=== PATIENT | female | born 1940 | race Caucasian/White ===

== ENCOUNTER 2022-02-21 09:36 | Emergency (ER) | payer OTHER, MEDICARE ==
[2022-02-21] MEDS ORDERED: Boostrix 0.5 ML (Tdap) VIAL ONE (10:05)
[2022-02-21] MEDS ORDERED: Bacitracin 1 PK ONE (10:09)
== END 2022-02-21 10:25 | disposition home or self-care (01) ==
LOC: NAV ERS 09:36
DX: S41.102A Unspecified open wound of left upper arm, initial encounter (principal); W19.XXXA Unspecified fall, initial encounter
CPT/HCPCS: 90471; 90715